=== PATIENT | female | born 1940 | race Caucasian/White ===

== ENCOUNTER 2018-12-21 06:51 | Day surgery (SDC) | payer MEDICARE, OTHER ==
[~2018-12-21] VITALS: Ht 147.3 cm; Wt 42.1 kg
[~2018-12-21 06:51] MED LIST: ABAT250V; CHOL400C; FOLI0.4T2; VIC PO; [UNRECOGNIZED DRUG - CODE] PO
[2018-12-21] MEDS ORDERED: PROPOFOL 60 ML ONE (07:34)
[2018-12-21] MEDS ORDERED: vitamin d (07:49)
[2018-12-21] MEDS ORDERED: calcium (07:49)
[2018-12-21] MEDS ORDERED: aspirin (07:49)
[2018-12-21] MEDS ORDERED: methotrexate (07:49)
[2018-12-21] MEDS ORDERED: lyrica (07:49)
--- NOTE | 2018-12-21 07:49 | PREAC ---
Date/Time of Note Date/Time of Note DATE: 12/21/18 TIME: 07:45 Anesthesia Eval and Record Evaluation Time Pre-Procedure Interview DATE: 12/21/18 TIME: 07:45 Age 78 Sex female NPO: 8 hrs Preoperative diagnosis abdominal pain; change in bowel habits Planned procedure EGD/Colonoscopy Past Medical History Past Medical History: Includes (fibromyalgia, neuropathy, scoliosis, ) Cardio: HTN Pulm: Smoking Hx, COPD Neuro: CVA Musculoskeletal: Rheumatoid arthritis GI: GERD Surgery & Anesthesia Issues No known issue Meds Anticoagulation: Yes (baby aspririn) Beta Olayinka within 24 hr: No Reason Beta Olayinka not given: Pt. not on B-Olayinka Reported Medications Acetaminophen/Hydrocodone (Vicodin) 1 Tab Tab, 1 TAB PO BEFORE MEALS, TAB 11/22/13 Ramipril (Altace) 1.25 Mg Capsule, 1.25 MG PO DAILY 11/22/13 Ergocalciferol (Vitamin D) 400 Unit Capsule 10/31/10 Folic Acid* (Folic Acid*) 0.4 Mg Tablet 10/31/10 Abatacept-Maltose (Orencia) 250 Mg/Vial Vial 10/31/10 Meds reviewed: Yes Allergies Coded Allergies: No Known Allergy (Verified , 10/31/10) Allergies Reviewed: Yes Labs/Studies Labs Reviewed: Reviewed by anesthesiologist test: N/A Pre-procedure Exam Airway: Adequate mouth opening, Adequate thyromental dist Mallampati: Mallampati II Teeth: Normal Lung: Normal Heart: Normal ASA Physical Status ASA physical status: 3 Emergency: None Planned Anesthetic General/MAC: MAC Pre-operative Attestations Prior to commencing anesthesia and surgery, the patient was re-evaluated, there was verification of: *The patient's identity *The results of appropriate recent lab work and preoperative vital signs *The above evaluation not changing prior to induction *Anesthetic plan, risk benefits, alternative and complications discussed with patient/family; questions answered; patient/family understands, accepts and wishes to proceed. KALIN POPE December 21, 2018 07:49
[2018-12-21] MEDS ORDERED: PRILOSEC (07:50)
[2018-12-21 07:54] VITALS: Ht 147.3 cm; Wt 42.1 kg
[2018-12-21 08:20] VITALS: BP 142/67; PULSE 65; RESP 18
--- NOTE | 2018-12-21 09:31 | PAC ---
Date/Time of Note Date/Time of Note DATE: 12/21/18 TIME: 09:29 Post-Anesthesia Notes Post-Anesthesia Note Last documented vital signs Vital Signs Date Temp Pulse Resp B/P (MAP) Pulse Ox O2 O2 Flow FiO2 Time Delivery Rate 12/21/18 98.0 98 65 62 18 18 142/67 100 100 Room 08:20 092 (92) 123/ Air face 8 61 mask 6L Activity: WNL Respiratory function: WNL Cardiovascular function: WNL Mental status: Baseline Pain reasonably controlled: Yes Hydration appropriate: Yes Nausea/Vomiting absent: Yes KALIN POPE December 21, 2018 09:31
[2018-12-21 10:03] VITALS: BP 150/66; PULSE 70; RESP 18
== END 2018-12-21 10:36 | disposition home or self-care (01) ==
LOC: GIL 06:51
PROVIDERS: ATTEND Internal Medicine Gastroenterology
DX: R19.4 Change in bowel habit (principal); K64.8 Other hemorrhoids; D12.5 Benign neoplasm of sigmoid colon; K57.30 Diverticulosis of large intestine without perforation or abscess without bleeding; K44.9 Diaphragmatic hernia without obstruction or gangrene; K21.9 Gastro-esophageal reflux disease without esophagitis; I10 Essential (primary) hypertension; J44.9 Chronic obstructive pulmonary disease, unspecified; Z86.73 Personal history of transient ischemic attack (TIA), and cerebral infarction without residual deficits; Z87.891 Personal history of nicotine dependence; M06.9 Rheumatoid arthritis, unspecified
CPT/HCPCS: 88305